=== PATIENT | female | born 1990 | race Caucasian/White ===

== ENCOUNTER 2022-04-20 19:56 | Day surgery (SDC) | payer OTHER ==
[2022-04-20 20:19] VITALS: BMI 29.0
[2022-04-20] MEDS ORDERED: hydrALAZINE 20 MG/ML VIAL SLOW IVP PRN (20:49)
[2022-04-20] MEDS ORDERED: Ondansetron PF 4 MG/2 ML Vial IVP SCH (21:00)
[2022-04-20] MEDS ORDERED: Lactated Ringer's 1,000 ML IV SCH (21:00)
[2022-04-20 21:29] LABS: #Basophils 0.1 10x3/uL (0.0-0.2); #Eosinphils 0.1 10x3/uL (0.0-0.5); #Monocytes 0.8 10x3/uL (0.0-1.1); #Neutrophils 9.7 10x3/uL (1.5-8.4); %Basophils 0.5 % (0.0-2.0); %Eosinophils 0.6 % (0.0-6.0); %Lymphocytes 15.5 % (18.0-47.0); %Monocytes 6.2 % (0.0-10.0); %Neutrophils 76.6 % (40.0-75.0); Hemoglobin 12.3 g/dL (12.0-15.5); Mean Corpuscular HGB CONC 34.4 g/dL (32.0-36.0); Mean Corpuscular Hemoglobin 28.7 pg (27.0-33.0); Mean Corpuscular Volume 83.4 fl (81.6-98.3); Mean Platelet Volume 9.6 fl (7.4-10.4); Platelet Count 244 10x3/uL (150-450); RBC Distribution Width 13.5 % (11.5-14.5); Red Blood Cell (RBC) Count 4.29 10x6/uL (3.90-5.03); White Blood Cell (WBC) Count 12.7 10x3/uL (3.5-10.5)
[2022-04-20 21:42] LABS: ALT (SGPT) 9 U/L (8-55); AST (SGOT) 15 U/L (5-34); Albumin 3.6 g/dL (3.5-5.0); Alkaline Phosphatase 113 U/L (40-110); Anion Gap 14 mmol/L (10-20); BUN (Urea Nitrogen) 12 mg/dL (7.0-18.7); Bilirubin, Total 0.2 mg/dL (0.2-1.2); Calc. Creatinine Clearance 216 mL/min (70-130); Calcium 9.2 mg/dL (7.8-10.44); Carbon Dioxide 21 mmol/L (22-29); Chloride 105 mmol/L (98-107); Estimated GFR 124; Globulin 3.6 g/dL (2.4-3.5); Glucose 92 mg/dL (70-105); Potassium 3.5 mmol/L (3.5-5.1); Protein, Total 7.2 g/dL (6.0-8.3); Sodium 136 mmol/L (136-145)
== END 2022-04-20 23:40 | disposition home or self-care (01) ==
LOC: CSHLD/OP 19:56
PROVIDERS: ATTEND Obstetrics & Gynecology
DX: O21.2 Late vomiting of pregnancy (principal); O99.891 Other specified diseases and conditions complicating pregnancy; N13.30 Unspecified hydronephrosis; O99.283 Endocrine, nutritional and metabolic diseases complicating pregnancy, third trimester; E03.9 Hypothyroidism, unspecified; Z79.899 Other long term (current) drug therapy; Z91.040 Latex allergy status; Z91.013 Allergy to seafood; Z3A.37 37 weeks gestation of pregnancy
CPT/HCPCS: 76705; 80053; 82239; 85025; 96360; 96361; 96375; 99283; J2405

== ENCOUNTER 2022-05-07 09:35 | Inpatient (IN) | payer OTHER ==
[2022-05-06 11:11] LABS: Amphetamine Not Detected (NotDetected); Barbiturates Screen Not Detected (NotDetected); Benzodiazepine Screen Not Detected (NotDetected); Cocaine Metabolite Screen Not Detected (NotDetected); Methadone Not Detected (NotDetected); Methamphetamine Not Detected (NotDetected); Opiate Screen Not Detected (NotDetected); Oxycodone Screen Not Detected (NotDetected); Phencyclidine (PCP) Not Detected (NotDetected); THC/Cannabinoid Screen Not Detected (NotDetected); Tricyclic Screen Not Detected (NotDetected)
[2022-05-06 11:16] LABS: SARS-CoV-2 NAA Rapid Test Not Detected (NotDetected)
[2022-05-06 11:19] LABS: HBSAg Index 0.24 S/CO (0-0.99); Hep B Surf Ag Non-Reactive S/CO (NonReactive)
[2022-05-06 12:03] LABS: #Eosinphils 0.1 10x3/uL (0.0-0.5); #Monocytes 0.5 10x3/uL (0.0-1.1); #Neutrophils 6.6 10x3/uL (1.5-8.4); %Basophils 0.4 % (0.0-2.0); %Lymphocytes 18.6 % (18.0-47.0); %Monocytes 5.9 % (0.0-10.0); %Neutrophils 73.7 % (40.0-75.0); Hemoglobin 13.2 g/dL (12.0-15.5); Mean Corpuscular HGB CONC 34.3 g/dL (32.0-36.0); Mean Corpuscular Hemoglobin 28.4 pg (27.0-33.0); Mean Corpuscular Volume 82.8 fl (81.6-98.3); Mean Platelet Volume 9.5 fl (7.4-10.4); Platelet Count 241 10x3/uL (150-450); RBC Distribution Width 13.2 % (11.5-14.5); Red Blood Cell (RBC) Count 4.65 10x6/uL (3.90-5.03); White Blood Cell (WBC) Count 8.9 10x3/uL (3.5-10.5)
[2022-05-06 12:29] LABS: Syphilis Antibody INDETERMINATE (Nonreactive)
[2022-05-06 12:30] LABS: Syphilis Antibody Index 15.77 S/CO (<1.00 Non-Reactive)
[2022-05-07 10:11] VITALS: BMI 30.3
[2022-05-07] MEDS ORDERED: Famotidine/PF 20 mg/2ml Vial SLOW IVP PRN (10:24)
[2022-05-07] MEDS ORDERED: hydrALAZINE 20 MG/ML VIAL SLOW IVP PRN ×2 (10:24→15:52)
[2022-05-07] MEDS ORDERED: Promethazine HCl 25 MG/ML VIAL IM PRN ×2 (10:24→13:53)
[2022-05-07] MEDS ORDERED: Ondansetron PF 4 MG/2 ML Vial IVP PRN ×2 (10:24→13:53)
[2022-05-07] MEDS ORDERED: Bicitra 30 ML UDCUP PO PRN (10:24)
[2022-05-07] MEDS ORDERED: CEFAZOLIN 2 GM in Sodium Chloride 0.9% 100 ML IVPB SCH (10:30)
[2022-05-07] MEDS: Lactated Ringer's 1,000 ML IV SCH ×2 (10:33→11:01)
[2022-05-07] MEDS ORDERED: Phenylephrine 40 MG/NS 250 ML 250 ML ONE (11:06)
[2022-05-07] MEDS ORDERED: Morphine PF 10 MG/10 ML VIAL ONE (11:06)
[2022-05-07] MEDS ORDERED: Ketorolac Tromethamine 30 MG/ML VIAL ONE (11:06)
[2022-05-07] MEDS ORDERED: PHENYLEPHRINE-NS 100 MCG/ML 10 ML SYRINGE ONE (11:06)
[2022-05-07] MEDS ORDERED: Oxytocin 10 UNITS/ML VIAL ONE ×2 (11:06→13:28)
[2022-05-07] MEDS ORDERED: Ketorolac Tromethamine 30 MG/ML VIAL IVP PRN (13:53)
[2022-05-07] MEDS ORDERED: Moisturizing Cream (Eucerin) 113 GM JAR TOP PRN (13:53)
[2022-05-07] MEDS ORDERED: Naloxone HCl 0.4 mg/ml Vial IV PRN (13:53)
[2022-05-07] MEDS ORDERED: Naloxone HCl 0.4 mg/ml Vial IVP PRN ×2 (13:53)
[2022-05-07] MEDS ORDERED: HYDROmorphone 2 MG/ML VIAL SLOW IVP PRN (13:53)
[2022-05-07] MEDS ORDERED: Fentanyl 100 MCG/2 ML VIAL SLOW IVP PRN (13:53)
[2022-05-07] MEDS ORDERED: Meperidine HCl/PF 25 MG/ML VIAL SLOW IVP PRN (13:53)
[2022-05-07] MEDS ORDERED: Promethazine HCl 25 MG SUPP PR PRN (13:53)
[2022-05-07] MEDS ORDERED: Ondansetron HCl/PF 4 MG/2 ML Vial IVP PRN (13:53)
[2022-05-07] MEDS ORDERED: Ketorolac Tromethamine 30 MG/ML VIAL IVP SCH (14:00)
[2022-05-07] MEDS ORDERED: Communication Order-Pharmacy FS SCH (14:00)
[2022-05-07] MEDS ORDERED: Bisacodyl 10 MG SUPP PR PRN (15:52)
[2022-05-07] MEDS ORDERED: Lanolin Ointment 7 GM TUBE TOP PRN (15:52)
[2022-05-07] MEDS ORDERED: Boostrix 0.5 ML (Tdap) VIAL (>/=7 yrs of age) IM ONE (15:52)
[2022-05-07] MEDS: diphenhydrAMINE 50 MG/ML VIAL IVP PRN ×2 (17:13→22:08)
[2022-05-07] MEDS: Docusate 100 MG CAP PO SCH (22:22)
[2022-05-07] MEDS: Ferrous Sulfate 325 MG TAB PO SCH (22:22)
[2022-05-08 04:56] LABS: Hemoglobin 11.1 g/dL (12.0-15.5); Mean Corpuscular HGB CONC 33.7 g/dL (32.0-36.0); Mean Corpuscular Hemoglobin 28.2 pg (27.0-33.0); Mean Corpuscular Volume 83.5 fl (81.6-98.3); Mean Platelet Volume 9.7 fl (7.4-10.4); Platelet Count 198 10x3/uL (150-450); RBC Distribution Width 13.3 % (11.5-14.5); Red Blood Cell (RBC) Count 3.94 10x6/uL (3.90-5.03); White Blood Cell (WBC) Count 9.9 10x3/uL (3.5-10.5)
[2022-05-08] MEDS: HYDROcodone/Acetaminophen 5/325 mg Tablet PO PRN ×3 (05:28→19:42)
[2022-05-08] MEDS: Ferrous Sulfate 325 MG TAB PO SCH ×2 (07:22→21:29)
[2022-05-08] MEDS: Prenatal Vitamin 1 TAB PO SCH (08:34)
[2022-05-08] MEDS: Docusate 100 MG CAP PO SCH ×2 (08:34→21:20)
[2022-05-08] MEDS: Simethicone Chewable 80 MG TAB PO PRN (08:34)
[2022-05-08] MEDS: Ibuprofen 800 MG TAB PO SCH ×2 (14:42→21:20)
[2022-05-09] MEDS: HYDROcodone/Acetaminophen 5/325 mg Tablet PO PRN ×3 (03:42→19:51)
[2022-05-09] MEDS: Ibuprofen 800 MG TAB PO SCH ×3 (05:36→22:11)
[2022-05-09] MEDS: Simethicone Chewable 80 MG TAB PO PRN (09:03)
[2022-05-09] MEDS: Prenatal Vitamin 1 TAB PO SCH (09:03)
[2022-05-09] MEDS: Ferrous Sulfate 325 MG TAB PO SCH ×2 (09:03→22:06)
[2022-05-09] MEDS: Docusate 100 MG CAP PO SCH ×2 (09:03→22:06)
[2022-05-10] MEDS: Ibuprofen 800 MG TAB PO SCH ×2 (06:13→13:48)
[2022-05-10] MEDS: HYDROcodone/Acetaminophen 5/325 mg Tablet PO PRN (08:03)
[2022-05-10] MEDS: Docusate 100 MG CAP PO SCH (08:04)
[2022-05-10] MEDS: Prenatal Vitamin 1 TAB PO SCH (08:04)
[2022-05-10 10:09] VITALS: BP 125/63; TEMP 98.1
== END 2022-05-10 14:45 | disposition home or self-care (01) | DRG 788 ==
LOC: CSHLD 09:35 → CSHPED 16:10
PROVIDERS: ADMIT Obstetrics & Gynecology; ATTEND Obstetrics & Gynecology
PROC: 10D00Z1 Extraction of Products of Conception, Low, Open Approach (ICD-10-PCS; principal; 2022-05-07)
DX: O34.211 Maternal care for low transverse scar from previous cesarean delivery (principal); Z3A.39 39 weeks gestation of pregnancy; Z37.0 Single live birth; Z20.822 Contact with and (suspected) exposure to COVID-19; Z91.040 Latex allergy status; Z91.041 Radiographic dye allergy status; Z91.013 Allergy to seafood; F17.210 Nicotine dependence, cigarettes, uncomplicated; O99.334 Smoking (tobacco) complicating childbirth
CPT/HCPCS: 36415; 51702; 80306; 85025; 85027; 86593; 86780; 86850; 86900; 86901; 87340; 88305; 88307; J1200; J1885; J2274; J2590; J3490; J7120; S0028; U0002